=== PATIENT | female | born 1995 | race Caucasian/White ===

== ENCOUNTER 2024-03-02 16:23 | Emergency (ER) | payer OTHER, SELFPAY ==
[2024-03-02 16:25] VITALS: BP 122/77
--- NOTE | 2024-03-02 17:19 | ED.GENMED ---
History of Present Illness
General
Chief Complaint: Musculo-Skeletal Complaint
Source: patient
Exam Limitations: none
Time Seen by Provider: 03/02/24 16:33
Nursing documentation reviewed up to this point in time: agreed with
Travel History
Have you had any contact with someone who has COVID-19?: No
Do you have any symptoms of coronavirus? Fever > 100 degrees, chills, cough, shortness of breath, sore throat, loss of taste or smell, muscle aches, or headache?: No
History of Present Illness
History of Present Illness:
28-year-old female with past medical history of anxiety depression asthma presenting to the emergency department today with concerns of right foot pain after twisting her ankle prior to arrival difficulty ambulating since. Denies additional
concerns no numbness or weakness.
Past History
Past History
ED Past Medical History: Asthma, Other (Syncope, migraine headaches) and Other (Anemia)
ED Past Surgical History: Orthopedic and Tonsilectomy (09/20/2016)
Social History
Tobacco: Non-smoker
Alcohol: None
Personal: Single
Living: with family
Employment: Employed
Family History
Family History: Other (Noncontributory); Negative Sudden
Review of Systems
Review of Systems
Allergies reviewed?: Yes
All Other Systems: ROS reviewed and negative except as documented in HPI and ROS
Phy Exam
Physical Exam
Physical Exam:
GENERAL: Alert , in no apparent distress
EYE: pupils equal and reactive
NECK: Supple, no significant adenopathy.
ENT: o/p clr, mmm.
CARDIAC: Regular rate and rhythm .
LUNGS: Clear breath sounds bilaterally, no acute respiratory distress, no wheezes/rales/rhonchi
ABDOMEN: Soft, without focal tenderness, no r/g, no cvat
NEUROLOGICAL: Alert and oriented, no focal neuro deficits
SKIN: Warm and dry, skin intact.
MUSCULOSKELETAL: Mild tenderness palpation to the medial ankle no redness or warmth no specific bony tenderness to the malleoli no edema, well perfused.
PSYCH: Normal and appropriate interaction.
Course
Orders/Labs/Results
Orders:
Orders
03/02/24 16:27
CR Foot - Right Min 3 Views Urgent
Comment:
Reason For Exam: injury
03/02/24 17:18
boot [Ortho Boot Right- Treatment] ONCE
Short or tall?: Short
Vital Signs
Initial and Last Documented VS:
Initial Vital Signs
Temp Pulse Resp BP Pulse Ox
99.4 F 75 18 122/77 99
03/02/24 16:25 03/02/24 16:25 03/02/24 16:25 03/02/24 16:25 03/02/24 16:25
Last Documented Vital Signs
Temp Pulse Resp BP Pulse Ox
99.4 F 75 18 122/77 99
03/02/24 16:25 03/02/24 16:25 03/02/24 16:25 03/02/24 16:25 03/02/24 16:25
MDM/Problems Addressed
MDM/Problems Addressed:
28-year-old female presenting to the emergency department today with concerns of right-sided ankle discomfort after twisting her ankle prior to arrival. Pain mainly medial ankle and foot region no redness or warmth . Normal neurovascular exam\\.
Patient with likely sprain placed in a walking boot and advised for outpatient follow-up as needed. Return precautions given.
*Critical Care Note
Total Time (30-74mins, 75-104mins- exclusive of procedures): Not Applicable
ED Attending Note
-
Portions of this chart may have been created with voice recognition software.� Occasional wrong word or��sound alike� substitutions may have occurred due to the inherent limitations of voice recognition software.
Discharge Plan
Departure
Patient Disposition: Home (Routine Discharge)
Date of Disposition: 03/02/24
Time of Disposition: 17:21
Patient with high blood pressure during this ER visit?: No
Condition: Good
Covid-19: Not Applicable
Discharge Problem:
Sprain of foot
Instructions: Foot Sprain ED
Prescriptions:
No Action
albuterol sulfate 2.5 mg /3 mL (0.083 %) Solution For Nebulization
2.5 mg INHALATION Q4H PRN (Reason: asthma)
albuterol sulfate 90 mcg/actuation Hfa Aerosol Inhaler
2 puff INHALATION Q4H
oseltamivir [Tamiflu] 75 mg capsule
75 mg PO BID Qty: 10 0RF
ibuprofen 800 mg tablet
800 mg PO QIDPRN PRN (Reason: pain, fever) Qty: 30 0RF
Referrals:
Dylan Martinez DPM [Active] - Follow up in 5-7 days
Chiquita Jorge DO [Family Provider] -
Activity Restrictions/Additional Instructions:
You came to the emergency department today with concerns of a foot injury. X-ray did not show fracture. This is likely a sprain. Return to the emergency department for any worsening, new or concerning symptoms.
Interventions
Interventions:
*Risk Screen - Suicide Last Done: 03/02/24 16:25
*General Assessment Last Done: 03/02/24 16:25
*Neglect/Abuse Screening Last Done: 03/02/24 16:25
ED-Musculoskeletal Assessment Last Done: 03/02/24 16:37
Discharge Date and Time
Print Language: CENTRAL AFRICAN
== END 2024-03-02 17:43 | disposition home or self-care (01) ==
LOC: EMR 16:23
PROVIDERS: EMERGENCY PHYSICIAN Emergency Medicine; FAMILY PHYSICIAN Family Medicine
DX: S93.601A Unspecified sprain of right foot, initial encounter (principal); X50.1XXA Overexertion from prolonged static or awkward postures, initial encounter; F41.8 Other specified anxiety disorders; J45.909 Unspecified asthma, uncomplicated; D64.9 Anemia, unspecified
CPT/HCPCS: 99283; 73630

== ENCOUNTER 2024-11-04 08:56 | Emergency (ER) | payer OTHER, SELFPAY ==
[2024-11-04 09:06] VITALS: BP 125/90
--- NOTE | 2024-11-04 11:11 | ED.GENMED ---
History of Present Illness
General
Chief Complaint: Back Pain
Source: patient
Exam Limitations: none
Time Seen by Provider: 11/04/24 10:58
History of Present Illness
History of Present Illness:
29yoF with no significant past medical history presenting with her mother for evaluation of low back pain. Symptoms began 4 days when her back 'locked up.' She denies any inciting incident or trauma. Her pain has been severe over the past 3 days.
She reports pain mostly in her right lower back. Pain is worse with movement and she is having difficulty standing up straight due to the pain. She has tried multiple things including heat/ice, lidocaine patches, TENS unit, ibuprofen, and Tylenol
without much relief. She also feels like both of her legs are weak. She has a 'bad back' but has never had pain like this before. She denies any fevers, abdominal pain, dysuria, incontinence, saddle anesthesia. No history of malignancy or IVDU.
Past History
Past History
ED Past Medical History: Asthma, Other (Syncope, migraine headaches) and Other (Anemia)
ED Past Surgical History: Orthopedic and Tonsilectomy (09/20/2016)
Social History
Tobacco: Non-smoker
Alcohol: None
Personal: Single
Living: with family
Employment: Employed
Family History
Family History: Other (Noncontributory); Negative Sudden
Phy Exam
General Physical Exam
General Presentation: well appearing
General age: appears stated age
General Skin: warm and dry
General Habitus: normal
General Mental: alert
ENT Exam
ENT Exam: normocephalic
Pulmonary Exam
Pulmonary Exam: no respiratory distress
Gastrointestinal Exam
Gastrointestinal Exam: non tender, soft and non distended
Neurological Exam
Neurological Exam: alert and other (4/5 strength with hip flexion 2/2 pain)
[place] Coma Scale
Eye Opening: Spontaneous
Verbal Response: Oriented
Motor Response: Obeys Commands
GCS Total Score: 15
Musculoskeletal Exam
Musculoskeletal Exam: other (+Reproducible tenderness in R lumbar region in SI joint region. No skin changes. Negative straight leg bilaterally. )
Skin Exam
Skin Exam: normal color and warm/dry
Psychiatric Exam
Psychiatric Exam: normal mood/affect
Course
Orders/Labs/Results
Orders:
Orders
11/04/24 11:10
Acetaminophen [Tylenol] 1,000 mg PO NOW STA
Cyclobenzaprine HCl [Flexeril] 10 mg PO NOW STA
Ketorolac [Toradol] 30 mg IM NOW STA
Lumbar Spine Complete, 4 View [CR Lumbar Spine Comp Min 4 Vw*] Urgent
Comment:
Reason For Exam: R lower back pain
11/04/24 11:22
Acetaminophen [Tylenol] 1,000 mg .ROUTE .STK-MED ONE
Cyclobenzaprine HCl [Flexeril] 10 mg .ROUTE .STK-MED ONE
Ketorolac [Toradol] 30 mg .ROUTE .STK-MED ONE
Vital Signs
Initial and Last Documented VS:
Initial Vital Signs
Temp Pulse Resp BP Pulse Ox
98.7 F 95 16 125/90 99
11/04/24 09:06 11/04/24 09:06 11/04/24 09:06 11/04/24 09:06 11/04/24 09:06
Last Documented Vital Signs
Temp Pulse Resp BP Pulse Ox
98.4 F 69 16 107/70 98
11/04/24 12:48 11/04/24 12:48 11/04/24 12:48 11/04/24 12:48 11/04/24 12:48
MDM/Problems Addressed
Differential Diagnosis Includes:
29yoF here with R lower back pain x 4 days. Worse with movement. No relief with OTC medications. No red flags in history including no fevers, saddle anesthesia, incontinence. VSS. There is reproducible tenderness on exam. No skin changes and
straight leg raise is negative bilaterally. Differential diagnosis includes but is not limited to: muscular strain, SI joint pain, herniated disc, fracture
Initial ED plan: Check lumbar spine x-rays. IM Toradol, Tylenol, and Flexeril for symptoms.
*Critical Care Note
Total Time (30-74mins, 75-104mins- exclusive of procedures): Not Applicable
Update Note
Update Note:
X-rays show mild degenerative changes without acute osseous abnormality. No indication for admission at this time. Supportive care discussed. Will trial course of prednisone and Robaxin. She was referred to orthopedics and pain management for
follow-up. ED return precautions discussed. Patient in agreement with plan and was discharged in stable condition.
ED Attending Note
-
Portions of this chart may have been created with voice recognition software.� Occasional wrong word or��sound alike� substitutions may have occurred due to the inherent limitations of voice recognition software.
Discharge Plan
Departure
Patient Disposition: Home (Routine Discharge)
Date of Disposition: 11/04/24
Time of Disposition: 12:54
Patient with high blood pressure during this ER visit?: No
Discharge Problem:
Acute low back pain
Instructions: Low Back Pain (DC)
Prescriptions:
New
prednisone 50 mg tablet
50 mg PO DAILY Qty: 5 0RF
methocarbamol 750 mg tablet
750 mg PO Q6H PRN (Reason: muscle spasms) Qty: 20 0RF
No Action
albuterol sulfate 2.5 mg /3 mL (0.083 %) Solution For Nebulization
2.5 mg INHALATION Q4H PRN (Reason: asthma)
albuterol sulfate 90 mcg/actuation Hfa Aerosol Inhaler
2 puff INHALATION Q4H
oseltamivir [Tamiflu] 75 mg capsule
75 mg PO BID Qty: 10 0RF
ibuprofen 800 mg tablet
800 mg PO QIDPRN PRN (Reason: pain, fever) Qty: 30 0RF
Referrals:
Sarah Aranda CRNP [Family Provider] -
Devante Pierre MD [Active] -
Jesse Mayberry MD [Active] -
Stand Alone Forms: Return to Work
Activity Restrictions/Additional Instructions:
Take prednisone as prescribed. Use lidocaine patches daily (12 hours on, 12 hours off). Continue taking Tylenol and ibuprofen as needed. Take Robaxin (muscle relaxer) as needed for spasms.
Please follow-up with orthopedics and pain management. Return to the ER with any new or worsening symptoms.
Interventions
Interventions:
*Risk Screen - Suicide Last Done: 11/04/24 09:06
*General Assessment Last Done: 11/04/24 09:06
*Neglect/Abuse Screening Last Done: 11/04/24 09:06
ED- Fall Risk Assessment Last Done: 11/04/24 13:12
*ED COVID-19 Vaccine History Last Done: 11/04/24 09:06
*Nursing Disposition Last Done: 11/04/24 13:12
ED-Musculoskeletal Assessment Last Done: 11/04/24 12:35
Discharge Date and Time
Discharge Date/Time: 11/04/24 13:13
Print Language: BULGARIAN
[2024-11-04] MEDS: TORADOL 30 MG IM (11:24)
[2024-11-04] MEDS: TYLENOL 1000 MG PO (11:24)
[2024-11-04] MEDS: FLEXERIL 10 MG PO (11:24)
[2024-11-04 12:48] VITALS: BP 107/70
== END 2024-11-04 13:13 | disposition home or self-care (01) ==
LOC: EMR 08:56
PROVIDERS: EMERGENCY PHYSICIAN Emergency Medicine; FAMILY PHYSICIAN Nurse Practitioner Family
DX: M54.50 Low back pain, unspecified (principal)
CPT/HCPCS: 99284; 96372; 72110

== ENCOUNTER 2024-12-27 21:04 | Emergency (ER) | payer OTHER, SELFPAY ==
[2024-12-27 21:14] VITALS: BP 138/80
[2024-12-27 21:39] LABS: HCG, Serum Qualitative Screen Negative
[2024-12-27 21:43] LABS: ALT (SGPT) 20 U/L (0-35); AST (SGOT) 21 U/L (14-36); Albumin 3.9 g/dl (3.5-5.0); Alkaline Phosphatase 52 U/L (38-126); Blood Urea Nitrogen 9 mg/dl (7-17); Calcium 9.5 mg/dl (8.4-10.2); Carbon Dioxide 24 mmol/L (22-30); Chloride 108 mmol/L (98-107); Glucose 91 mg/dl (70-99); Lipase 113 U/L (23-300); Potassium 3.7 mmol/L (3.5-5.1); Sodium 139 mmol/L (135-145); Total Bilirubin 0.3 mg/dl (0.2-1.3); Total Protein 6.5 g/dl (6.3-8.2); eGFR > 60.00
[2024-12-27 21:44] LABS: % Basophils 0.6 % (0-2); % Eosinophils 2.7 % (0-6); % Immature Granulocytes 0.2 % (0-0.5); % Monocytes 5.9 % (1.7-9.3); % Neutrophils 47.6 % (42.2-75.2); Absolute Basophils 0.1 10^3/uL (0-0.2); Absolute Eosinophils 0.3 10^3/uL (0-0.7); Absolute Lymphocytes 4.2 10^3/uL (1.2-3.4); Absolute Monocytes 0.6 10^3/uL (0.1-0.6); Absolute Neutrophils 4.7 10^3/uL (1.4-6.5); Hematocrit 34.5 % (37.0-47.0); Hemoglobin 11.8 g/dL (12.0-16.0); Mean Corp Hgb Conc. 34.2 g/dL (33.0-37.0); Mean Corpuscular Hgb 28.4 pg (27.0-31.0); Mean Corpuscular Volume 83.1 fL (81.0-99.0); Mean Platelet Volume 9.4 fL (7.4-10.4); Nucleated Red Blood Cells % 0 %; Platelet Count 334 10^3/uL (130-400); Red Blood Cell Count 4.15 10^6/uL (4.20-5.40); Red Cell Dist. Width 14.4 % (11.5-14.5); White Blood Cell Count 9.8 10^3/uL (4.8-10.8)
[2024-12-27 22:23] VITALS: BP 126/68
[2024-12-27 22:26] VITALS: BP 126/68; BMI 32.9
[2024-12-27 23:00] VITALS: BP 127/69
--- NOTE | 2024-12-27 23:07 | ED.GENMED ---
History of Present Illness
General
Chief Complaint: Chest Problem
Time Seen by Provider: 12/27/24 22:44
History of Present Illness
History of Present Illness:
Patient presents to the emergency department with episodes of fluttering in her chest. Symptoms started today. Symptoms are brief in nature and she has no precipitating factors that she can identify. He feels like there is a butterfly in her
chest and she feels tightness. Symptoms then entirely resolved.
Past History
Past History
ED Past Medical History: Asthma, Other (Syncope, migraine headaches) and Other (Anemia)
ED Past Surgical History: Orthopedic and Tonsilectomy (09/20/2016)
Social History
Tobacco: Non-smoker
Alcohol: None
Personal: Single
Living: with family
Employment: Employed
Family History
Family History: Other (Noncontributory); Negative Sudden
Phy Exam
Physical Exam
Physical Exam:
GENERAL APPEARANCE: NAD, well developed/ well nourished
EYES lids/conjunctiva normal
EARS/NOSE/THROAT Mucous membranes moist, uvula midline without oral pharyngeal erythema, exudate or swelling
HEAD/NECK normocephalic atraumatic, neck is supple.
RESPIRATORY respiratory effort normal, speaks in full sentences, no accessory muscle use. Lungs clear to auscultation without rhonchi, wheezes, rales
CARDIAC Regular rate and rhythm, no edema.
ABDOMINAL Soft, ND/NT. No pulsatile masses on exam, rebound tenderness, Hoskins sign or pain over Mcburney's point.
MUSCLES/EXTREMITIES No abnormal range of motion, no swelling.
SKIN Warm, pink and dry. No rashes
NEUROLOGICAL Speech is clear and appropriate. Normal level of consciousness. 5/5 strength in all extremities.
PSYCH Normal mood and affect. Judgement/competence is appropriate
Course
Orders/Labs/Results
Orders:
Orders
12/27/24 21:05
ECG [Electrocardiogram (*1)] Urgent
Reason for Study: Chest Pain
EKG- Treatment ONCE
12/27/24 21:12
Chest [CR Chest - 2 Views ] Urgent
Comment:
Reason For Exam: chest pain
12/27/24 21:13
Test Result ONCE
12/27/24 21:17
Complete Blood Count/With Diff Urgent
Comprehensive Metabolic Panel Urgent
HCG, Serum Qualitative Screen Urgent
Lipase Urgent
Abnormal Lab Results
12/27/24
21:17
RBC 4.15 L 10^6/uL
(4.20-5.40)
Hgb 11.8 L g/dL
(12.0-16.0)
Hct 34.5 L %
(37.0-47.0)
Absolute Lymphs (auto) 4.2 H 10^3/uL
(1.2-3.4)
Chloride 108 H mmol/L
(98-107)
12/27/24 21:17
12/27/24 21:17
Vital Signs
Initial and Last Documented VS:
Initial Vital Signs
Temp Pulse Resp BP Pulse Ox
98.5 F 64 18 138/80 99
12/27/24 21:14 12/27/24 21:14 12/27/24 21:14 12/27/24 21:14 12/27/24 21:14
Last Documented Vital Signs
Temp Pulse Resp BP Pulse Ox
98.2 F 66 17 118/80 99
12/27/24 22:26 12/27/24 23:25 12/27/24 23:25 12/27/24 23:25 12/27/24 23:25
*Critical Care Note
Total Time (30-74mins, 75-104mins- exclusive of procedures): Not Applicable
ED Attending Note
ED Attending Note
ED Attending Note:
Patient is well-appearing. She presents with palpitations, clinically suggestive of premature beats. She is in sinus rhythm here and is asymptomatic. Labs are reassuring. EKG without ischemic changes. She is PERC negative. Will refer to
cardiology for outpatient Holter monitoring if she continues to have symptoms.
-
Portions of this chart may have been created with voice recognition software.� Occasional wrong word or��sound alike� substitutions may have occurred due to the inherent limitations of voice recognition software.
Discharge Plan
Departure
Patient Disposition: Home (Routine Discharge)
Date of Disposition: 12/27/24
Time of Disposition: 23:08
Patient with high blood pressure during this ER visit?: No
Discharge Problem:
Heart palpitations
Instructions: Heart Palpitations
Prescriptions:
No Action
albuterol sulfate 2.5 mg /3 mL (0.083 %) Solution For Nebulization
2.5 mg INHALATION Q4H PRN (Reason: asthma)
albuterol sulfate 90 mcg/actuation Hfa Aerosol Inhaler
2 puff INHALATION Q4H
oseltamivir [Tamiflu] 75 mg capsule
75 mg PO BID Qty: 10 0RF
ibuprofen 800 mg tablet
800 mg PO QIDPRN PRN (Reason: pain, fever) Qty: 30 0RF
prednisone 50 mg tablet
50 mg PO DAILY Qty: 5 0RF
methocarbamol 750 mg tablet
750 mg PO Q6H PRN (Reason: muscle spasms) Qty: 20 0RF
Referrals:
Sarah Aranda CRNP [Family Provider] -
Babar Ragland MD [Active] -
Activity Restrictions/Additional Instructions:
follow up with the campus supervisor as needed for further workup
return to ER with new or worsening symptoms
Interventions
Interventions:
*Risk Screen - Suicide Last Done: 12/27/24 21:14
*General Assessment Last Done: 12/27/24 21:26
*Neglect/Abuse Screening Last Done: 12/27/24 21:14
*ED- Fall Risk Assessment Last Done: 12/27/24 21:26
*ED COVID-19 Vaccine History Last Done: 12/27/24 21:26
*Nursing Disposition Last Done: 12/27/24 23:33
ED- Cardiac Assessment Last Done: 12/27/24 22:26
ED- Pulmonary Assessment Last Done: 12/27/24 22:26
Discharge Date and Time
Discharge Date/Time: 12/27/24 23:40
Print Language: VIETNAMESE
[2024-12-27 23:25] VITALS: BP 118/80
== END 2024-12-27 23:40 | disposition home or self-care (01) ==
LOC: EMR 21:04
PROVIDERS: Emergency Medicine; EMERGENCY PHYSICIAN Emergency Medicine; FAMILY PHYSICIAN Nurse Practitioner Family
DX: R00.2 Palpitations (principal)
CPT/HCPCS: 99285; 71046; 80053; 83690; 84703; 85025; 93005